=== PATIENT | female | born 1985 | race Caucasian/White ===

== ENCOUNTER 2020-01-19 23:41 | Emergency (ER) | payer OTHER ==
[~2020-01-19] VITALS: Ht 157.5 cm; Wt 65.8 kg
--- NOTE | 2020-01-19 23:48 | NUR ---
PT AAOX4. AMBULATORY WITH STEADY GAIT. BIBSELF C/O L SIDE RIB PAIN -TRAUMA -KO. PLACED ON MONITOR AND PULSE OX. VSS. AWAITING MD FOR EVAL AND ORDERS.
--- NOTE | 2020-01-20 | NUR ---
RENTAL MANAGEMENT TRAINEE AT BEDSIDE FOR LABS
--- NOTE | 2020-01-20 | NUR ---
PT AMBULATED TO RESTROOM. AWAITING URINE SAMPLE.
[2020-01-20 00:07] LABS: CALCIUM, SERUM 8.8 mg/dL (8.5-10.1); CARBON DIOXIDE 30 mmol/L (21-32); CHLORIDE 104 mmol/L (98-107); CREATININE 0.9 mg/dL (0.6-1.3); GLUCOSE 113 mg/dL (74-106); SODIUM SERUM 137 mmol/L (136-145); UREA NITROGEN, BLOOD 12 mg/dL (7-18)
--- NOTE | 2020-01-20 00:07 | NUR ---
URINE SAMPLE SENT TO LAB
--- NOTE | 2020-01-20 00:21 | NUR ---
Patient is resting comfortably in bed. Easily aroused. VSS.
[2020-01-20 00:27] LABS: HEMATOCRIT 30 % (33-45); HEMOGLOBIN 9.4 g/dL (11.5-14.8); MEAN CORPUSCULAR HGB CONC 31 g/dl (31.0-36.0); MEAN CORPUSCULAR VOLUME 63 fL (82-100); PLATELET COUNT (AUTO) 292 /CMM (150-450); RED BLOOD CELL COUNT(AUTO) 4.72 MIL/uL (4.0-5.2); WHITE BLOOD COUNT (AUTO) 13.1 K/uL (4.3-11.0)
[2020-01-20 00:44] LABS: EOSINOPHILS % (MANUAL) 1 % (0-4); LYMPHOCYTES % (MANUAL) 42 % (16-48); MONOCYTES % (MANUAL) 2 % (0-11.0); NEUTROPHILS % (MANUAL) 55 (42-76)
--- NOTE | 2020-01-20 00:57 | NUR ---
Patient discharged to home in stable condition. Written and verbal after care instructions given. Patient verbalizes understanding of instruction. Pt ambualted with steady gait. vss.
[2020-01-20 00:58] VITALS: BP 128/83
== END 2020-01-20 00:58 | disposition home or self-care (01) ==
LOC: ER 23:44
DX: R07.89 Other chest pain (principal); D50.9 Iron deficiency anemia, unspecified
CPT/HCPCS: 36415; 71045-TC; 80048-TC; 84484-TC; 84703-TC; 85025-TC

== ENCOUNTER 2020-09-22 21:39 | Emergency (ER) | payer OTHER ==
[~2020-09-22] VITALS: Ht 157.5 cm; Wt 65.8 kg
[2020-09-22 21:40] VITALS: BP 136/83
== END 2020-09-22 22:22 | disposition home or self-care (01) ==
LOC: ER 21:42
DX: U07.1 COVID-19 (principal)

== ENCOUNTER 2020-11-15 21:55 | Emergency (ER) | payer OTHER ==
[~2020-11-15] VITALS: Ht 157.5 cm; Wt 61.2 kg
[2020-11-15] MEDS ORDERED: METOCLOPRAMIDE HCL 10 MG/2 ML VIAL IV ONE (22:30)
[2020-11-15] MEDS ORDERED: KETOROLAC TROMETHAMINE INJ 30 MG/ML VIAL IV ONE (22:30)
[2020-11-15] MEDS ORDERED: IV NS 0.9% 1,000 ML BAG IV ONE (22:30)
[2020-11-15] MEDS ORDERED: diphenhydrAMINE HCL 50 MG/ML VIAL IV ONE (22:30)
--- NOTE | 2020-11-15 22:30 | NUR ---
BIBS FOR C/O H/A X 3 DAYS. + BODY ACHES . HX OF COVID 19 2 MONTHS AGO. DENIED ANY COUGH OR SOB. PT ALSO REPORTED AN EPISODE OF CHEST DISCOMFORT A COUPLE DAYS AGO. AMBULATORY TO BED 6. PLACED ON A MONITOR. VSS .AFEBRILE.. WILL CONT TO MONITOR
[2020-11-15] MEDS ORDERED: METOCLOPRAMIDE HCL 10 MG/2 ML VIAL ONE (22:34)
[2020-11-15] MEDS ORDERED: diphenhydrAMINE HCL 50 MG/ML VIAL ONE (22:34)
[2020-11-15] MEDS ORDERED: KETOROLAC TROMETHAMINE INJ 30 MG/ML VIAL ONE (22:34)
[2020-11-15 22:53] LABS: BASOPHILS # (AUTO) 0.1 /CMM (0.0-0.2); EOSINOPHILS % (AUTO) 2.4 % (0.0-6.0); HEMATOCRIT 30 % (33-45); HEMOGLOBIN 9.6 g/dL (11.5-14.8); LYMPHOCYTES # (AUTO) 4.2 /CMM (0.8-4.8); LYMPHOCYTES % (AUTO) 38.6 % (20.0-44.0); MEAN CORPUSCULAR HGB CONC 32 g/dl (31.0-36.0); MEAN CORPUSCULAR VOLUME 63 fL (82-100); MONOCYTES # (AUTO) 0.4 /CMM (0.1-1.30); MONOCYTES % (AUTO) 4.1 % (2.0-12.0); NEUTROPHILS # (AUTO) 5.9 /CMM (1.8-8.9); NEUTROPHILS % (AUTO) 53.9 % (43.0-81.0); PLATELET COUNT (AUTO) 352 /CMM (150-450); RED BLOOD CELL COUNT(AUTO) 4.77 MIL/uL (4.0-5.2); WHITE BLOOD COUNT (AUTO) 10.9 K/uL (4.3-11.0)
--- NOTE | 2020-11-15 22:55 | NUR ---
urine sample collected and sent to lab
[2020-11-15 23:05] LABS: CARBON DIOXIDE 25 mmol/L (21-32); CHLORIDE 103 mmol/L (98-107); CREATININE 0.6 mg/dL (0.6-1.3); GLUCOSE 124 mg/dL (74-106); POTASSIUM 3.6 mmol/L (3.5-5.1); SODIUM SERUM 139 mmol/L (136-145); UREA NITROGEN, BLOOD 13 mg/dL (7-18)
[2020-11-16] MEDS ORDERED: KETO10TA2 PO (00:17)
--- NOTE | 2020-11-16 00:44 | NUR ---
pt is medically stable for d/c. IV removed. Catheter intact and site benign. Pressure and 4x4 applied to site. No bleeding noted.Patient discharged to home in stable condition. Written and verbal after care instructions given. Patient verbalizes understanding of instruction.
[2020-11-16 00:46] VITALS: BP 116/55
== END 2020-11-16 00:47 | disposition home or self-care (01) ==
LOC: ER 21:58
DX: M79.18 Myalgia, other site (principal); R51.9 Headache, unspecified
CPT/HCPCS: 36415; 71045; 80048; 84484; 84703; 85025; 93005; 96360; 99285; J7030; J1200; J1885; J2765

== ENCOUNTER 2020-11-23 14:46 | Emergency (ER) | payer OTHER ==
[~2020-11-23] VITALS: Ht 157.5 cm; Wt 66.2 kg
[~2020-11-23 14:46] MED LIST: KETO10TA2 PO
--- NOTE | 2020-11-23 15:00 | NUR ---
NAUSEA/HEADACHE AND CHEST PAIN TODAY. PATIENT AA/OX4, BREATHING EVEN AND UNLABORED, NO SOB NOTED. NEEDS ATTENDED. KEPT COMFORTABLE.
[2020-11-23 16:14] VITALS: BP 129/79
--- NOTE | 2020-11-23 16:14 | NUR ---
Patient discharged to home in stable condition. Written and verbal after care instructions given. Patient verbalizes understanding of instruction.
== END 2020-11-23 16:14 | disposition home or self-care (01) ==
LOC: ER 14:46
DX: F43.9 Reaction to severe stress, unspecified (principal); R03.0 Elevated blood-pressure reading, without diagnosis of hypertension; R94.31 Abnormal electrocardiogram [ECG] [EKG]; Z90.89 Acquired absence of other organs

== ENCOUNTER 2020-12-01 19:43 | Emergency (ER) | payer OTHER, MEDICAID ==
[~2020-12-01] VITALS: Ht 157.5 cm; Wt 65.3 kg
[2020-12-01 19:57] VITALS: BP 118/83
[2020-12-01] MEDS ORDERED: ACETAMINOPHEN 325 MG TABLET ONE (20:10)
[2020-12-01] MEDS ORDERED: ACETAMINOPHEN 325 MG TABLET PO ONE (20:30)
--- NOTE | 2020-12-01 21:02 | NUR ---
Call from lab. Rapid covid negative.
== END 2020-12-01 21:43 | disposition home or self-care (01) ==
LOC: ER 19:47
DX: R50.9 Fever, unspecified (principal); Z20.822 Contact with and (suspected) exposure to COVID-19
CPT/HCPCS: 87426; 87804; 99283; C9803

== ENCOUNTER 2020-12-17 14:53 | Emergency (ER) | payer OTHER, MEDICAID ==
[~2020-12-17] VITALS: Ht 157.5 cm; Wt 64.9 kg
--- NOTE | 2020-12-17 15:31 | NUR ---
DR FELIX AT BEDSIDE FOR EVAL.
--- NOTE | 2020-12-17 15:36 | NUR ---
RADIOLOGY AT BEDSIDE FOR CHEST XRAY.
--- NOTE | 2020-12-17 15:46 | NUR ---
MACHINE SIGN WRITER AT BEDSIDE FOR BLOOD DRAW.
[2020-12-17 15:51] LABS: BASOPHILS # (AUTO) 0.1 /CMM (0.0-0.2); BASOPHILS % (AUTO) 0.8 % (0.0-2.0); EOSINOPHILS % (AUTO) 0.6 % (0.0-6.0); HEMATOCRIT 31 % (33-45); HEMOGLOBIN 9.8 g/dL (11.5-14.8); LYMPHOCYTES # (AUTO) 4.3 /CMM (0.8-4.8); LYMPHOCYTES % (AUTO) 45.4 % (20.0-44.0); MEAN CORPUSCULAR HGB CONC 32 g/dl (31.0-36.0); MEAN CORPUSCULAR VOLUME 65 fL (82-100); MONOCYTES # (AUTO) 0.3 /CMM (0.1-1.30); MONOCYTES % (AUTO) 3.3 % (2.0-12.0); NEUTROPHILS # (AUTO) 4.7 /CMM (1.8-8.9); NEUTROPHILS % (AUTO) 49.9 % (43.0-81.0); PLATELET COUNT (AUTO) 318 /CMM (150-450); RED BLOOD CELL COUNT(AUTO) 4.79 MIL/uL (4.0-5.2); WHITE BLOOD COUNT (AUTO) 9.4 K/uL (4.3-11.0)
[2020-12-17 16:12] LABS: CALCIUM, SERUM 8.9 mg/dL (8.5-10.1); CARBON DIOXIDE 26 mmol/L (21-32); CHLORIDE 101 mmol/L (98-107); CREATININE 0.7 mg/dL (0.6-1.3); GLUCOSE 98 mg/dL (74-106); POTASSIUM 3.5 mmol/L (3.5-5.1); SODIUM SERUM 136 mmol/L (136-145); UREA NITROGEN, BLOOD 11 mg/dL (7-18)
--- NOTE | 2020-12-17 16:41 | NUR ---
Patient discharged to home in stable condition. Written and verbal after care instructions given. Patient verbalizes understanding of instruction.
[2020-12-17 16:44] VITALS: BP 112/69
[2020-12-17 16:55] LABS: EOSINOPHILS % (MANUAL) 1 % (0-4); LYMPHOCYTES % (MANUAL) 23 % (16-48); MONOCYTES % (MANUAL) 1 % (0-11.0); NEUTROPHILS % (MANUAL) 75 (42-76)
== END 2020-12-17 16:44 | disposition home or self-care (01) ==
LOC: ER 14:59
DX: M79.622 Pain in left upper arm (principal); R07.89 Other chest pain
CPT/HCPCS: 36415; 71045-TC; 80048-TC; 84484-TC; 85025-TC

== ENCOUNTER 2020-12-29 01:26 | Emergency (ER) | payer OTHER, MEDICAID ==
[~2020-12-29] VITALS: Ht 157.5 cm; Wt 65.8 kg
[2020-12-29] MEDS ORDERED: ONDANSETRON HCL/PF 4 MG/2 ML VIAL IVP ONE (02:30)
[2020-12-29] MEDS ORDERED: IV NS 0.9% 1,000 ML BAG IV ONE (02:30)
[2020-12-29] MEDS ORDERED: MORPHINE SULFATE INJ 2 MG/ML DISP.SYRIN IV ONE (02:30)
[2020-12-29 02:35] LABS: BASOPHILS # (AUTO) 0.1 /CMM (0.0-0.2); BASOPHILS % (AUTO) 0.5 % (0.0-2.0); EOSINOPHILS % (AUTO) 1.1 % (0.0-6.0); HEMATOCRIT 33 % (33-45); HEMOGLOBIN 10.3 g/dL (11.5-14.8); LYMPHOCYTES # (AUTO) 5.2 /CMM (0.8-4.8); LYMPHOCYTES % (AUTO) 39.7 % (20.0-44.0); MEAN CORPUSCULAR HGB CONC 31 g/dl (31.0-36.0); MEAN CORPUSCULAR VOLUME 65 fL (82-100); MONOCYTES # (AUTO) 0.6 /CMM (0.1-1.30); MONOCYTES % (AUTO) 4.6 % (2.0-12.0); NEUTROPHILS # (AUTO) 7.1 /CMM (1.8-8.9); NEUTROPHILS % (AUTO) 54.1 % (43.0-81.0); PLATELET COUNT (AUTO) 340 /CMM (150-450); RED BLOOD CELL COUNT(AUTO) 5.11 MIL/uL (4.0-5.2); WHITE BLOOD COUNT (AUTO) 13.1 K/uL (4.3-11.0)
--- NOTE | 2020-12-29 02:44 | NUR ---
PATIENT CAME TO ER BED 16 C/O LEFT UPPER PELVIC PAIN SINCE YESTERDAY. PATIENT STATES THAT SHE HAS HEART BURN. PATIENT STATES THAT SHE LIFTED SOMETHING HEAVY YESTERDAY. PATIENT IS ALERT AND ORIENTED x4. PATIENT IS BREATHING EVENLY AND UNLABORED ON ROOM AIR AT 100%. PATIENT IS CONNECTED TO THE MONITOR.
[2020-12-29 03:09] LABS: BILIRUBIN,URINE NEGATIVE (NEGATIVE); COLOR,URINE YELLOW (YELLOW); LEUKOCYTE ESTERASE ,URINE NEGATIVE (NEGATIVE); NITRITE, URINE NEGATIVE (NEGATIVE); PROTEIN,URINE NEGATIVE (NEGATIVE); UGLUCOSE NEGATIVE (NEGATIVE); UROBILINOGEN,URINE 0.2 EU/dL (0.2)
[2020-12-29 03:09] LABS: CALCIUM, SERUM 8.9 mg/dL (8.5-10.1); CREATININE 0.8 mg/dL (0.6-1.3); POTASSIUM 3.4 mmol/L (3.5-5.1)
[2020-12-29 03:14] LABS: ALBUMIN 4.3 g/dL (3.4-5.0); BILIRUBIN,DIRECT 0.2 mg/dL (0.0-0.2); BILIRUBIN,TOTAL 0.9 mg/dL (0.2-1.0); TOTAL PROTEIN, SERUM 8.2 g/dL (6.4-8.2)
--- NOTE | 2020-12-29 03:33 | NUR ---
patient to ct
[2020-12-29] MEDS ORDERED: AMOX-430 PO (05:40)
[2020-12-29] MEDS ORDERED: DICY10CA37 PO (05:40)
[2020-12-29] MEDS ORDERED: METR500T PO (05:40)
--- NOTE | 2020-12-29 06:10 | NUR ---
Patient discharged to home in stable condition. Written and verbal after care instructions given. Patient verbalizes understanding of instruction and RX. Pt ambulated out of ED. VSS.
--- NOTE | 2020-12-29 06:10 | NUR ---
IV removed. Catheter intact and site benign. Pressure and 4x4 applied to site. No bleeding noted.
[2020-12-29 06:11] VITALS: BP 121/68
== END 2020-12-29 06:23 | disposition home or self-care (01) ==
LOC: ER 01:28
DX: K52.9 Noninfective gastroenteritis and colitis, unspecified (principal); Z90.89 Acquired absence of other organs; Z79.899 Other long term (current) drug therapy
CPT/HCPCS: 36415; 80048-TC; 80076-TC; 83690-TC; 84703-TC; 85025-TC; 87086-TC

== ENCOUNTER 2021-01-03 01:22 | Emergency (ER) | payer OTHER ==
[~2021-01-03] VITALS: Ht 157.5 cm; Wt 63.0 kg
[~2021-01-03 01:22] MED LIST changes: +AMOX-430 PO; +DICY10CA37 PO; +METR500T PO
[2021-01-03 01:30] VITALS: BP 127/88
--- NOTE | 2021-01-03 03:42 | NUR ---
VASCULAR TRCH AT BEDSIDE FOR DUPLEX.
--- NOTE | 2021-01-03 04:40 | NUR ---
Patient discharged to home in stable condition. Written and verbal after care instructions given. Patient verbalizes understanding of instruction. ambulatory with a steady gait noted. pt aaox4 no acute distress noted, resp even and unlabored.
== END 2021-01-03 04:41 | disposition home or self-care (01) ==
LOC: ER 01:23
DX: R22.41 Localized swelling, mass and lump, right lower limb (principal); F41.9 Anxiety disorder, unspecified; Z90.89 Acquired absence of other organs; Z79.899 Other long term (current) drug therapy
CPT/HCPCS: 93971-TC

== ENCOUNTER 2021-01-04 17:57 | Emergency (ER) | payer OTHER ==
[~2021-01-04] VITALS: Ht 160 cm; Wt 63.5 kg
[2021-01-04 18:11] VITALS: BP 127/81
[2021-01-04 18:26] LABS: BASOPHILS # (AUTO) 0.1 /CMM (0.0-0.2); EOSINOPHILS % (AUTO) 0.8 % (0.0-6.0); HEMATOCRIT 31 % (33-45); HEMOGLOBIN 9.7 g/dL (11.5-14.8); LYMPHOCYTES # (AUTO) 0.8 /CMM (0.8-4.8); LYMPHOCYTES % (AUTO) 6.7 % (20.0-44.0); MEAN CORPUSCULAR HGB CONC 32 g/dl (31.0-36.0); MEAN CORPUSCULAR VOLUME 65 fL (82-100); MONOCYTES # (AUTO) 2.3 /CMM (0.1-1.30); MONOCYTES % (AUTO) 20.6 % (2.0-12.0); NEUTROPHILS % (AUTO) 70.9 % (43.0-81.0); PLATELET COUNT (AUTO) 325 /CMM (150-450); RED BLOOD CELL COUNT(AUTO) 4.72 MIL/uL (4.0-5.2); WHITE BLOOD COUNT (AUTO) 11.3 K/uL (4.3-11.0)
[2021-01-04 18:43] LABS: D-DIMER 0.19 mg/L(FEU (0.17-0.50)
[2021-01-04 18:44] LABS: ALBUMIN 4.1 g/dL (3.4-5.0); BILIRUBIN,TOTAL 1.1 mg/dL (0.2-1.0); CALCIUM, SERUM 8.7 mg/dL (8.5-10.1); CREATININE 0.8 mg/dL (0.6-1.3); POTASSIUM 3.2 mmol/L (3.5-5.1); TOTAL PROTEIN, SERUM 7.6 g/dL (6.4-8.2)
[2021-01-04 19:09] LABS: BAND % (MANUAL) 2 % (0.0-5.0); BASOPHILS % (MANUAL) 1 % (0.0-2.0); EOSINOPHILS % (MANUAL) 1 % (0-4); LYMPHOCYTES % (MANUAL) 10 % (16-48); MONOCYTES % (MANUAL) 10 % (0-11.0); NEUTROPHILS % (MANUAL) 76 (42-76)
== END 2021-01-04 19:26 | disposition home or self-care (01) ==
LOC: ER 17:57
DX: D64.9 Anemia, unspecified (principal); Z71.1 Person with feared health complaint in whom no diagnosis is made; Z86.16 Personal history of COVID-19; Z90.89 Acquired absence of other organs; Z79.899 Other long term (current) drug therapy
CPT/HCPCS: 36415; 80053-TC; 85025-TC; 85378-TC; 85610-TC